=== PATIENT | female | born 1990 | race Hispanic/Latino ===

== ENCOUNTER 2016-09-13 03:56 | Emergency (ER) | payer OTHER ==
[2016-09-13 04:03] VITALS: O2SAT 100
[2016-09-13 04:10] VITALS: BP 137/94; PULSE 60; RESP 12; TEMP 97
--- NOTE | 2016-09-13 04:25 | ED PDOC ---
- ECG O2 Sat by Pulse Oximetry: 100
--- NOTE | 2016-09-13 04:26 | ED PDOC ---
HPI: Psych/Substance Abuse Time Seen by Provider: 09/13/16 04:02 Chief Complaint (Nursing): Anxiety Additional Complaint(s): 26F BIBA for "panick attack" that started after an evening of celebrating a birthday with 5 beers and then continued with being informed of a "break-up" by her boyfriend which resulted in the patient taking one of her prescribed Xanax and deciding that she no longer wishes to live. She is accompanied by her friend. Her accompanying symptoms are SOB, palpitations, and feeling "overwhelmed". Patient reports she feels like everything has become worse after starting on new control which was discussed with her COMPUTER CLERK. The past 2 weekends she has wanted "to ". PMH: Depression PSH: None ALL: NKDA MICHAEL: Celexa 10mg Daily, Xanax PRN Past Medical History Vital Signs: Last Vital Signs Temp 36.1 C L 09/13/16 04:08 Pulse 60 09/13/16 04:08 Resp 12 09/13/16 04:08 BP 137/94 H 09/13/16 04:08 Pulse Ox 100 09/13/16 04:08 - Family History Family History: States: Unknown Family Hx - Allergies Allergies/Adverse Reactions: Allergies Allergy/AdvReac Type Severity Reaction Status Date / Time No Known Allergies Allergy Verified 09/13/16 03:58 Review of Systems Respiratory: Positive for: Shortness of Breath Psych: Positive for: Anxiety, Depression, Suicidal ideation Physical Exam - Reviewed Vital Signs Reviewed: Yes - Physical Exam Appears: Positive for: Non-toxic, In Acute Distress (Emotional) Head Exam: Positive for: ATRAUMATIC, NORMAL INSPECTION Skin: Positive for: Warm, Dry Eye Exam: Positive for: Normal appearance, EOMI, PERRL Cardiovascular/Chest: Positive for: Regular Rate, Rhythm. Negative for: JVD Respiratory: Positive for: Normal Breath Sounds. Negative for: Rales, Wheezing Gastrointestinal/Abdominal: Positive for: Bowel Sounds, Soft Extremity: Positive for: Normal ROM, Capillary Refill Neurologic/Psych: Positive for: Alert, Oriented, Mood/Affect (Depressed mood) - Laboratory Results Result Diagrams: 09/13/16 04:30 09/13/16 04:30 - ECG O2 Sat by Pulse Oximetry: 100 Medical Decision Making Medical Decision Making: - EKG - cbc. cmp, tsh, UDS, upreg, alcohol Alcohol: 143 UDS: Negative Tylenol: Negative Evaluation by crisis: Although recommendation is for admission, parents have decided they are willing to take on the responsibility of taking their daughter into their care while finding services near their home. Disposition - Clinical Impression Clinical Impression: Depression, Anxiety and depression Doctor Will See Patient In The: Office Counseled Patient/Family Regarding: Studies Performed, Diagnosis - Disposition Disposition: Routine/Home Disposition Time: 05:46 Condition: STABLE
[2016-09-13 04:41] LABS: HEMOGLOBIN 13.2 g/dL (12.0-16.0); MEAN CELL VOLUME 88.9 fl (81.0-99.0); MEAN CORPUSCULAR HEMOGLOBIN 30.4 pg (27.0-31.0); MEAN CORPUSCULAR HGB CONC 34.1 g/dL (33.0-37.0); RBC 4.36 Mil/uL (3.80-5.20); RED CELL DISTRIBUTION WIDTH 12.5 % (11.5-14.5)
[2016-09-13 04:50] LABS: ALB/GLOB RATIO 1.3 (1.0-2.1); ALBUMIN 4.1 g/dL (3.5-5.0); ALT/SGPT 46 U/L (9-52); AST/SGOT 37 U/L (14-36); BLOOD UREA NITROGEN 10 mg/dl (7-17); CALCIUM 9.3 mg/dL (8.4-10.2); GFR AFRICAN-AMERICAN > 60; GFR NON-AFRICAN AMERICAN > 60
[2016-09-13 04:51] LABS: ACETAMINOPHEN < 10.0 ug/ml (10.0-30.0); SALICYLATE < 1.0 mg/dl
[2016-09-13 04:56] LABS: BARBITURATES, UR NEGATIVE (NEGATIVE); BENZODIAZEPINES, UR NEGATIVE (NEGATIVE); OPIATES, UR NEGATIVE (NEGATIVE); PHENCYCLIDINE, UR NEGATIVE (NEGATIVE)
--- NOTE | 2016-09-13 08:39 | CARD ---
APPROVED REPORT EKG Measurement Heart [id number] <Conclusion> Normal sinus rhythm Normal ECG
== END 2016-09-13 06:31 | disposition home or self-care (01) ==
LOC: H.ER 03:56 → H.ERHOLD 05:01 → UNDOADMIN 05:01 → UNDODISIN 06:30 → H.ER 06:31
DX: F32.9 Major depressive disorder, single episode, unspecified (principal); F41.9 Anxiety disorder, unspecified; Z86.59 Personal history of other mental and behavioral disorders